=== PATIENT | male | born 1995 | race Two or more races ===

== ENCOUNTER 2024-09-16 21:10 | Emergency (ER) | payer OTHER, SELFPAY ==
[~2024-09-16] VITALS: Ht 160 cm; Wt 72.2 kg
[2024-09-16 23:40] VITALS: TEMP 98.6
[2024-09-17 02:15] LABS: BASO # 0.1 10^3/uL (0.0-0.2); BASO % 0.7 % (0.0-1.0); EOS # 0.1 10^3/uL (0.0-0.5); EOS % 1.6 % (0.0-3.0); LYMPH # 1.4 10^3/uL (1.5-5.0); LYMPH % 19.1 % (24.0-44.0); MONO # 0.8 10^3/uL (0.0-0.8); MONO % 10.2 % (2.0-8.0); NEUTROPHILS # 5.1 10^3/uL (1.5-8.5); NEUTROPHILS % 67.7 % (36.0-66.0); PLATELET COUNT, AUTOMATED 280 10^3/uL (150-450)
[2024-09-17] MEDS: ACETAMINOPHEN 500 MG TAB PO ONE (02:33)
[2024-09-17 02:34] LABS: ALT/SGPT 40 U/L (7.0-40); AST/SGOT 29 U/L (<34); CALCIUM LEVEL 9.2 MG/DL (8.5-10.1); CARBON DIOXIDE LEVEL 29 MMOL/L (20-31); CHLORIDE LEVEL 104 MMOL/L (98-107); CREATININE FOR GFR 0.89 MG/DL (0.70-1.30); GLOMERULAR FILTRATION RATE > 90.0 (>60); POTASSIUM SERUM 3.7 MMOL/L (3.5-5.1); SODIUM LEVEL 142 MMOL/L (136-145)
[2024-09-17] MEDS: KETOROLAC 30 MG/ML 1 ML VIAL IV ONE (02:34)
[2024-09-17 02:35] LABS: ERYTHROCYTE SEDIMENTATION RATE 16 mm/hr (0-15)
[2024-09-17 03:37] LABS: APPEARANCE, URINE CLEAR (CLEAR); BACTERIA, URINE AUTO NEGATIVE (NEGATIVE); BILIRUBIN, URINE AUTO NEGATIVE (NEGATIVE); BLOOD, URINE BLOOD NEGATIVE (NEGATIVE); GLUCOSE, URINE (UA) AUTO NEGATIVE (NEGATIVE); KETONE, URINE AUTO NEGATIVE (NEGATIVE); LEUKOCYTE ESTERASE, URINE AUTO NEGATIVE (NEGATIVE); MUCUS, URINE SMALL (NEGATIVE); NITRITE, URINE AUTO NEGATIVE (NEGATIVE); PROTEIN, URINE AUTO NEGATIVE (NEGATIVE); RBC, URINE AUTO 0 /HPF (0-3); SPECIFIC GRAVITY URINE AUTO 1.010 (1.002-1.035); SQUAMOUS EPITHELIAL CELL UR AU 0 /HPF (0-6); UROBILINOGEN, URINE AUTO 0.2 mg/dL (0.0-2.0); WBC, URINE AUTO 0 /HPF (0-3)
[2024-09-17 04:30] VITALS: BP 116/66
[2024-09-17 05:40] VITALS: O2SAT 94
[2024-09-17] MEDS ORDERED: NAPR-885 PO (05:44)
== END 2024-09-17 06:07 | disposition home or self-care (01) ==
LOC: M ED 21:10
DX: R22.43 Localized swelling, mass and lump, lower limb, bilateral (principal)
CPT/HCPCS: 73630; 80048; 80076; 81001; 85025; 85379; 85652; 93970; 96374; 99284; J1885